=== PATIENT | female | born 1990 | race Caucasian/White ===

== ENCOUNTER 2018-05-17 15:58 | Emergency (ER) | payer OTHER ==
[~2018-05-17] VITALS: Ht 177.8 cm; Wt 127.0 kg
== END 2018-05-17 20:55 | disposition home or self-care (01) ==
LOC: ER 15:58
DX: N92.0 Excessive and frequent menstruation with regular cycle (principal)

== ENCOUNTER 2019-12-14 05:05 | Day surgery (SDC) | payer OTHER | END 2019-12-14 15:10 | disposition home or self-care (01) | LOC: CIR.AMB 05:05 → ADM 08:45 → CIR.AMB 15:10 | DX: N84.0 Polyp of corpus uteri (principal); Z30.433 Encounter for removal and reinsertion of intrauterine contraceptive device ==